=== PATIENT | male | born 1975 | race Caucasian/White ===

== ENCOUNTER → 2021-07-19 | Outpatient (CLI) | payer MEDICARE, OTHER | LOC: KOH-I 11:43 | DX: R05 Cough (principal) | CPT/HCPCS: 71046 ==

== ENCOUNTER → 2021-09-18 | Outpatient (CLI) | payer MEDICARE, OTHER | LOC: HEART 5 09:48 | DX: R06.02 Shortness of breath (principal); I20.8 Other forms of angina pectoris | CPT/HCPCS: 93306 ==